=== PATIENT | male | born 1970 | race Caucasian/White ===

== ENCOUNTER 2018-05-18 10:15 | Emergency (ER) | payer BC ==
[~2018-05-18] VITALS: Ht 180.3 cm; Wt 99.8 kg
[2018-05-18] MEDS ORDERED: NORFLEX100MG PO (12:32)
[2018-05-18] MEDS ORDERED: KETO10TA2 PO (12:32)
== END 2018-05-18 12:48 | disposition home or self-care (01) ==
LOC: ER 10:15
DX: S33.5XXA Sprain of ligaments of lumbar spine, initial encounter (principal); M53.3 Sacrococcygeal disorders, not elsewhere classified; W18.09XA Striking against other object with subsequent fall, initial encounter; Y93.89 Activity, other specified; Y92.814 Boat as the place of occurrence of the external cause; Y99.8 Other external cause status